=== PATIENT | female | born 1960 | race African-American/Black ===

== ENCOUNTER 2024-10-23 10:10 | Inpatient (IN) | payer OTHER ==
[2024-10-23 10:46] VITALS: BMI 18.2
[2024-10-23] MEDS ORDERED: IBUPROFEN 400 MG TABLET (FP) PO PRN (11:14)
[2024-10-23] MEDS ORDERED: ONDANSETRON *ODT* 4 MG TABLET SL PRN (11:14)
[2024-10-23] MEDS ORDERED: MAGNESIUM HYDROX 2400MG/30ML ORAL SUSPENSION 30 ML CUP PO PRN (11:14)
[2024-10-23] MEDS ORDERED: LOPERAMIDE HCL 2 MG CAPSULE PO PRN (11:14)
[2024-10-23] MEDS ORDERED: hydrOXYzine PAMOATE 25 MG CAPSULE (FP) PO PRN (11:14)
[2024-10-23] MEDS ORDERED: POLYETHYLENE GLYCOL (HEALTHYLAX) 3350 17 GM PACKET PO PRN (11:14)
[2024-10-23] MEDS ORDERED: DICYCLOMINE HCL 10 MG CAPSULE PO PRN (11:14)
[2024-10-23] MEDS ORDERED: BISMUTH SUBSALICYLATE 262 MG/15 ML BTL PO PRN (11:14)
[2024-10-23] MEDS ORDERED: MAG HYDROX/AL HYDROX/SIMETH 30 ML UNIT-DOSE CUP PO PRN (11:14)
[2024-10-23] MEDS ORDERED: BENZONATATE 200 MG CAPSULE PO PRN (11:14)
[2024-10-23] MEDS ORDERED: NALOXONE (NARCAN) HCL 4 MG/0.1 ML SPRAY NS PRN (11:14)
[2024-10-23] MEDS ORDERED: BENZOCAINE/MENTHOL (CHLORASEPTIC ) LOZENGE MM PRN (11:14)
[2024-10-23] MEDS ORDERED: guaiFENesin 600 MG TABLET.ER (FP) PO PRN (11:14)
[2024-10-23] MEDS ORDERED: methaDONE HCL 10 MG TABLET (FOR DETOX USE ONLY) ONE (11:35)
[2024-10-23] MEDS ORDERED: cloNIDine HCL 0.1 MG TABLET ONE (11:36)
[2024-10-23] MEDS ORDERED: PRENATAL VITAMINS W/ FOLIC ACID TABLET (FP) PO ONE (11:36)
[2024-10-23] MEDS ORDERED: NICOTINE 7 MG/24 HOURS TOPICAL PATCH TD ONE (11:36)
[2024-10-23] MEDS: NICOTINE 7 MG/24 HOURS TOPICAL PATCH TD SCH (11:47)
[2024-10-23] MEDS: PRENATAL VITAMINS W/ FOLIC ACID TABLET (FP) PO SCH (11:47)
[2024-10-23] MEDS: methaDONE HCL 10 MG TABLET PO ONE (11:48)
[2024-10-23] MEDS: cloNIDine HCL 0.1 MG TABLET PO SCH (13:01)
[2024-10-23] MEDS ORDERED: methaDONE HCL 10 MG TABLET PO PRN (13:11)
[2024-10-23] MEDS ORDERED: ALBUTEROL SO4 HFA INHALER IH ONE (16:35)
[2024-10-23] MEDS: AMOX TR/POT CLAV 500MG/125MG TABLETS (FP) PO SCH (17:54)
[2024-10-23] MEDS: THIAMINE 100 MG TABLET PO SCH (22:54)
[2024-10-23] MEDS: METHOCARBAMOL 500 MG TABLET PO PRN (22:54)
[2024-10-23] MEDS: MELATONIN 5 MG TABLETS PO SCH (22:54)
[2024-10-24 09:54] LABS: HEMATOCRIT 34.5 % (32.4-45.2); HEMOGLOBIN 11.2 GM/dL (10.7-15.3); MCH 31.3 pg (25.7-33.7); MCHC 32.6 g/dl (32.0-36.0); MEAN CELL VOLUME 96.2 fl (80-96); MEAN PLT VOLUME 7.8 fl (7.5-11.1); PLATELET COUNT 284 10^3/uL (134-434); RBC 3.59 M/mm3 (3.60-5.2); RDW 13.6 % (11.6-15.6); WHITE BLOOD COUNT 5.4 K/mm3 (4.0-10.0)
[2024-10-24] MEDS: methaDONE 40 MG, methaDONE 10 MG PO ONE (10:03)
[2024-10-24 10:18] LABS: POTASSIUM 4.3 mmol/L (3.5-5.1)
[2024-10-24 10:26] LABS: ALBUMIN 2.8 g/dl (3.4-5.0); BLOOD UREA NITROGEN 17.5 mg/dL (7-18)
[2024-10-24 10:29] LABS: CREATININE 0.7 mg/dL (0.55-1.3)
[2024-10-24 10:30] LABS: BILIRUBIN,TOTAL 0.5 mg/dL (0.2-1); TOT PROT 6.3 g/dl (6.4-8.2)
[2024-10-24] MEDS: ACETAMINOPHEN 325 MG TABLET (FP) PO PRN (14:36)
[2024-10-25] MEDS: methaDONE 40 MG, methaDONE 20 MG PO ONE (10:05)
[2024-10-25] MEDS: IBUPROFEN 600 MG TABLET (FP) PO PRN (13:04)
[2024-10-25] MEDS: cloNIDine HCL 0.1 MG TABLET PO PRN (22:20)
[2024-10-26] MEDS: methaDONE 40 MG, methaDONE 30 MG PO ONE (09:08)
[2024-10-27] MEDS: methaDONE HCL 40 MG DISPERSABLE TABLET PO ONE (09:40)
[2024-10-27] MEDS: NALOXONE (NYS OPIOID OVERDOSE PROGRAM) 4 MG/0.1 ML SPRAY NS SCH (15:20)
[2024-10-28] MEDS: methaDONE 80 MG, methaDONE 10 MG PO ONE (09:34)
[2024-10-28 11:31] VITALS: BP 142/78; PULSE 68; RESP 16; TEMP 98
== END 2024-10-28 11:45 | disposition home or self-care (01) | DRG 773 ==
LOC: YASAS 10:10 → Y6N 11:49
PROVIDERS: ADMIT Allergy & Immunology; ATTEND Surgery
PROC: HZ2ZZZZ Detoxification Services for Substance Abuse Treatment (ICD-10-PCS; principal; 2024-10-23)
DX: F11.23 Opioid dependence with withdrawal (principal); F14.20 Cocaine dependence, uncomplicated; F17.210 Nicotine dependence, cigarettes, uncomplicated; L97.819 Non-pressure chronic ulcer of other part of right lower leg with unspecified severity; R63.6 Underweight; Z68.1 Body mass index [BMI] 19.9 or less, adult; Z20.2 Contact with and (suspected) exposure to infections with a predominantly sexual mode of transmission; Z59.00 Homelessness unspecified; Z56.0 Unemployment, unspecified
CPT/HCPCS: 36415; 71045-TC-FY; 80053; 85027; 86593; 86780; 93005; 93010

== ENCOUNTER 2025-01-25 11:18 | Inpatient (IN) | payer OTHER ==
[2025-01-25] MEDS ORDERED: NALOXONE (NARCAN) HCL 4 MG/0.1 ML SPRAY NS PRN (11:39)
[2025-01-25] MEDS ORDERED: BENZONATATE 200 MG CAPSULE PO PRN (11:39)
[2025-01-25] MEDS ORDERED: LOPERAMIDE HCL 2 MG CAPSULE PO PRN (11:39)
[2025-01-25] MEDS ORDERED: POLYETHYLENE GLYCOL (HEALTHYLAX) 3350 17 GM PACKET PO PRN (11:39)
[2025-01-25] MEDS ORDERED: BISMUTH SUBSALICYLATE 524 MG/30 ML PO PRN (11:39)
[2025-01-25] MEDS ORDERED: MAG HYDROX/AL HYDROX/SIMETH 30 ML UNIT-DOSE CUP PO PRN (11:39)
[2025-01-25] MEDS ORDERED: ONDANSETRON *ODT* 4 MG TABLET SL PRN (11:39)
[2025-01-25] MEDS ORDERED: guaiFENesin 600 MG TABLET.ER (FP) PO PRN (11:39)
[2025-01-25] MEDS ORDERED: hydrOXYzine PAMOATE 25 MG CAPSULE (FP) PO PRN (11:39)
[2025-01-25] MEDS ORDERED: IBUPROFEN 600 MG TABLET (FP) PO PRN (11:39)
[2025-01-25] MEDS ORDERED: MAGNESIUM HYDROX 2400MG/30ML ORAL SUSPENSION 30 ML CUP PO PRN (11:39)
[2025-01-25] MEDS ORDERED: BENZOCAINE/MENTHOL (CHLORASEPTIC ) LOZENGE MM PRN (11:39)
[2025-01-25] MEDS ORDERED: IBUPROFEN 400 MG TABLET (FP) PO PRN (11:39)
[2025-01-25] MEDS ORDERED: DICYCLOMINE HCL 10 MG CAPSULE PO PRN (11:39)
[2025-01-25 11:40] VITALS: BMI 16.7
[2025-01-25] MEDS ORDERED: methaDONE HCL 10 MG TABLET PO PRN (13:39)
[2025-01-25] MEDS: methaDONE HCL 10 MG TABLET PO ONE (13:55)
[2025-01-25] MEDS: cloNIDine HCL 0.1 MG TABLET PO SCH (13:55)
[2025-01-25] MEDS: MELATONIN 5 MG TABLETS PO SCH (23:04)
[2025-01-25] MEDS: THIAMINE 100 MG TABLET PO SCH (23:05)
[2025-01-25] MEDS: MIRTAZAPINE 15 MG TABLET (FP) PO SCH (23:05)
[2025-01-26] MEDS: PRENATAL VITAMINS W/ FOLIC ACID TABLET (FP) PO SCH (09:55)
[2025-01-26 11:34] LABS: HEMATOCRIT 42.6 % (32.4-45.2); HEMOGLOBIN 13.8 GM/dL (10.7-15.3); MCH 30.9 pg (25.7-33.7); MCHC 32.4 g/dl (32.0-36.0); MEAN CELL VOLUME 95.2 fl (80-96); MEAN PLT VOLUME 8.5 fl (7.5-11.1); PLATELET COUNT 354 10^3/uL (134-434); RBC 4.48 M/mm3 (3.60-5.2); RDW 13.5 % (11.6-15.6); WHITE BLOOD COUNT 10.9 K/mm3 (4.0-10.0)
[2025-01-26 11:37] LABS: POTASSIUM 3.9 mmol/L (3.5-5.1)
[2025-01-26 11:47] LABS: CALCIUM 9.7 mg/dL (8.5-10.1)
[2025-01-26 11:48] LABS: ALBUMIN 3.8 g/dl (3.4-5.0); BLOOD UREA NITROGEN 30.8 mg/dL (7-18)
[2025-01-26 11:51] LABS: CREATININE 2.1 mg/dL (0.55-1.3)
[2025-01-26] MEDS: ACETAMINOPHEN 325 MG TABLET (FP) PO PRN (22:34)
[2025-01-27] MEDS ORDERED: cloNIDine HCL 0.1 MG TABLET PO PRN
[2025-01-27] MEDS ORDERED: methaDONE HCL 40 MG DISPERSABLE TABLET PO ONE (10:00)
[2025-01-27] MEDS ORDERED: methaDONE 40 MG, methaDONE 10 MG PO ONE (10:00)
[2025-01-27 11:09] LABS: ALBUMIN 2.9 g/dl (3.4-5.0)
[2025-01-27 11:11] LABS: CALCIUM 8.9 mg/dL (8.5-10.1); CREATININE 0.8 mg/dL (0.55-1.3); PHOSPHOROUS 2.4 mg/dL (2.5-4.9)
[2025-01-27] MEDS: METHOCARBAMOL 500 MG TABLET PO PRN (17:18)
[2025-01-27] MEDS: diazePAM 5 MG TABLET PO ONE (21:15)
[2025-01-28] MEDS ORDERED: methaDONE HCL 10 MG TABLET PO SCH (06:00)
[2025-01-29 08:45] VITALS: BP 126/62; PULSE 61; RESP 18; TEMP 97.4
[2025-01-29] MEDS ORDERED: methaDONE 40 MG, methaDONE 20 MG PO ONE (10:00)
== END 2025-01-29 12:04 | disposition left against medical advice (07) | DRG 770 ==
LOC: YASAS 11:18 → Y3N 12:47
PROVIDERS: ADMIT Allergy & Immunology; ATTEND Allergy & Immunology
PROC: HZ2ZZZZ Detoxification Services for Substance Abuse Treatment (ICD-10-PCS; principal; 2025-01-25)
DX: F11.23 Opioid dependence with withdrawal (principal); F14.20 Cocaine dependence, uncomplicated; F17.210 Nicotine dependence, cigarettes, uncomplicated; F19.282 Other psychoactive substance dependence with psychoactive substance-induced sleep disorder; F19.24 Other psychoactive substance dependence with psychoactive substance-induced mood disorder; G47.00 Insomnia, unspecified; I95.9 Hypotension, unspecified
CPT/HCPCS: 36415; 80053; 80069; 80305; 80307; 85027; 86593; 86780; 93005; 93010